=== PATIENT | female | born 1975 | race Asian ===

== ENCOUNTER 2023-02-03 06:14 | Day surgery (SDC) | payer OTHER ==
[2023-02-03] MEDS ORDERED: LIDOCAINE 4% 50 ML SOLUTION TP ONE (06:15)
[2023-02-03] MEDS ORDERED: BENZOCAINE 20% 50 MCG/SPRAY 57 GM TP ONE (06:15)
[2023-02-03] MEDS ORDERED: ALBUTEROL SULFATE 2.5 MG/0.5 ML NEB SOLUTION NEB ONE (06:15)
[2023-02-03] MEDS ORDERED: LIDOCAINE 2% 11 ML JELLY TP ONE (06:15)
[2023-02-03] MEDS ORDERED: SODIUM CHLORIDE 0.9% 1,000 ML IV ONE (07:00)
[2023-02-03] MEDS ORDERED: SODIUM CHLORIDE 0.9% 1,000 ML ONE (07:04)
[2023-02-03] MEDS ORDERED: FAMO20 PO (07:51)
[2023-02-03] MEDS ORDERED: DENO60DI SQ (07:51)
[2023-02-03] MEDS ORDERED: BUSP10TA23 PO (07:51)
[2023-02-03] MEDS ORDERED: DULO-114 PO (07:51)
[2023-02-03] MEDS ORDERED: ATOR40TA28 PO (07:51)
[2023-02-03] MEDS ORDERED: FLUT1BLS18 IH (07:51)
[2023-02-03] MEDS ORDERED: EMPA25TA3 PO (07:51)
[2023-02-03] MEDS ORDERED: HYDR-4584 PO (07:51)
[2023-02-03] MEDS ORDERED: ALBU18HF12 IH (07:51)
[2023-02-03] MEDS ORDERED: LOSA-382 PO (07:51)
[2023-02-03] MEDS ORDERED: BACL10TA PO (07:51)
[2023-02-03] MEDS ORDERED: SULF500T60 PO (07:51)
[2023-02-03] MEDS ORDERED: METO50 PO (07:51)
[2023-02-03] MEDS ORDERED: MONT-35 PO (07:51)
[2023-02-03] MEDS ORDERED: DULA4.5P SQ (07:51)
[2023-02-03] MEDS ORDERED: ALLO-45 PO (07:51)
[2023-02-03] MEDS ORDERED: METF-1211 PO (07:51)
[2023-02-03] MEDS ORDERED: PREG50 PO (07:51)
[2023-02-03] MEDS ORDERED: MIDAZOLAM HCL 2 MG/2 ML VIAL ONE (08:00)
[2023-02-03] MEDS ORDERED: FentaNYL CITRATE PF 100 MCG/2 ML VIAL ONE (08:00)
[2023-02-03 08:06] LABS: GLUCOMETER DEV NAME(LOC) SDS.; GLUCOSE,POINT OF CARE 123 MG/DL (70-110)
[2023-02-03 09:10] VITALS: PULSE 85; RESP 16; O2SAT 95
[2023-02-03] MEDS ORDERED: MethylPREDNISolone SOD SUCC 125 MG/2 ML VIAL IVP ONE (09:15)
[2023-02-03] MEDS ORDERED: MethylPREDNISolone SOD SUCC 125 MG/2 ML VIAL ONE (09:21)
== END 2023-02-03 10:50 | disposition home or self-care (01) ==
LOC: SURGERY 06:14
PROVIDERS: ATTEND Internal Medicine Critical Care Medicine
DX: J38.4 Edema of larynx (principal); B37.0 Candidal stomatitis; I10 Essential (primary) hypertension; M06.9 Rheumatoid arthritis, unspecified; E11.9 Type 2 diabetes mellitus without complications; Z87.442 Personal history of urinary calculi; Z98.890 Other specified postprocedural states; Z90.49 Acquired absence of other specified parts of digestive tract
CPT/HCPCS: 31623; 88112; 82962; 87206; 87101; 87220; 87070; 31624; 94640; 71045; 87015; J3010; J2250; J2930; Q9967; J7030; J7613; Z7610